=== PATIENT | female | born 1950 | race Caucasian/White ===

== ENCOUNTER → 2025-01-23 10:39 | Outpatient (BNVA) | payer MEDICARE, SELFPAY | PROVIDERS: PCP Family Medicine; Referring Provider Podiatrist; Visit Provider Psychiatry & Neurology Neurology | DX: G62.9 Polyneuropathy, unspecified (principal); M62.541 Muscle wasting and atrophy, not elsewhere classified, right hand; I10 Essential (primary) hypertension | CPT/HCPCS: 99215 ==